=== PATIENT | female | born 1990 ===

== ENCOUNTER 2024-04-19 18:18 | Emergency (ER) | payer SELFPAY ==
[~2024-04-19] VITALS: Ht 157.5 cm; Wt 80.7 kg
[2024-04-19 19:33] LABS: Influenza A, PCR NEGATIVE (NEGATIVE); Influenza B, PCR NEGATIVE (NEGATIVE); Resp Syncytial Virus, PCR NEGATIVE (NEGATIVE); SARS-Cov-2 (COVID-19) PCR, MMC NEGATIVE (NEGATIVE)
== END 2024-04-19 20:05 | disposition home or self-care (01) ==
LOC: ER 18:18
PROVIDERS: Nurse Practitioner
DX: J06.9 Acute upper respiratory infection, unspecified (principal)
CPT/HCPCS: 0241U; 99283

== ENCOUNTER → 2024-12-08 | Outpatient (CLI) | payer BC | LOC: LAB 11:24 → LAB SHORT 11:24 | DX: R82.81 Pyuria (principal) | CPT/HCPCS: 87086 ==